=== PATIENT | female | born 1990 | race Asian ===

== ENCOUNTER 2024-02-19 14:53 | Outpatient (CLI) | payer BC ==
[~2024-02-19] VITALS: Ht 162.6 cm; Wt 70.5 kg
--- NOTE | 2024-02-19 15:10 | NUR ---
PT AMBULATORY TO UNIT WITH SPOUSE. REPORTS CTX Q5MIN. NO LOF, NO VAGINAL BLEEDING, POSITIVE MOVEMENT. REPORTS "NOT SUPER PAINFUL, BUT DEFINITELY HURT, I FEEL THE TIGHTENING. THEY WENT AWAY THIS MORNING BUT CAME BACK." DISCUSSED WATER INTAKE AND PT STATED SHE "DEFINITELY HAS NOT HAD ENOUGH" TODAY. SVE 1-2//-2. EFM CAT 1. VS STABLE.
[2024-02-19] MEDS ORDERED: LR 1,000 ML IV PRN (15:30)
[2024-02-19] MEDS ORDERED: PRENATAL TABLET PO (15:31)
[2024-02-19] MEDS ORDERED: PRILOSEC 20MG20 MG PO (15:32)
[2024-02-19] MEDS ORDERED: METAMUCIL0.52 G1 (15:32)
--- NOTE | 2024-02-19 16:14 | NUR ---
SVE UNCHANGED. DISCUSSED EARLY LABOR VS REAL LABOR. TOLD PT TO COME BACK IF SROM, VAGINAL BLEEDING, DECREASED FM, OR INCREASE IN CTX. PT UNDERSTANDS AND AGREES TO GO HOME.
[2024-02-19 16:15] VITALS: BP 123/77; PULSE 100
== END 2024-02-19 16:20 | disposition home or self-care (01) ==
LOC: LDRO 14:53
DX: Z34.93 Encounter for supervision of normal pregnancy, unspecified, third trimester (principal); Z3A.40 40 weeks gestation of pregnancy

== ENCOUNTER 2024-02-20 04:31 | Inpatient (IN) | payer BC ==
[~2024-02-20] VITALS: Ht 165.1 cm; Wt 70.5 kg
[2024-02-20] VITALS (31 sets, daily range): BP systolic 95–147; BP diastolic 53–88; PULSE 54–89; TEMP 97.2–98.1
[~2024-02-20 04:31] MED LIST: METAMUCIL0.52 G1; PRENATAL TABLET PO; PRILOSEC 20MG20 MG PO
--- NOTE | 2024-02-20 04:40 | NUR ---
PT ARRIVED TO UNIT WITH COMPLAINT OF INCREASING CONTRACTION PAIN AND BLOODY SHOW. DOES NOT THINK HER WATER HAS BROKEN. REPORTS GOOD FM.
[2024-02-20] MEDS ORDERED: LR & Oxytocin 500 ML IV SCH (05:15)
[2024-02-20] MEDS ORDERED: Penicillin G Potassium 5,000,000 UNITS in NS 100 ML IV ONE (05:15)
[2024-02-20] MEDS ORDERED: LR 1,000 ML IV SCH (05:15)
--- NOTE | 2024-02-20 05:45 | NUR ---
PT TO WHIRLPOOL TUB. WATER TEMP CHECKED AT 97.7 DEG F.
[2024-02-20 05:48] LABS: BASO % 0.2 % (0.0-2.0); EOS % 0.1 % (0.0-4.0); GRAN # 8.2 K/mm3 (1.4-6.5); HEMOGLOBIN 12.6 g/dl (12.5-16.0); LYMPH # 1.2 K/mm3 (1.2-3.4); LYMPH % 11.7 % (20.0-51.0); MEAN CELL VOLUME 93 fl (80.0-100.0); MEAN CORPUSCULAR HEMOGLOBIN 33 pg (27-31); MEAN CORPUSCULAR HGB CONC 35 g/dl (33.0-37.0); MEAN PLATELET VOLUME 10.9 fl (7.4-10.4); MONO # 0.6 K/mm3 (0.1-0.6); MONO % 6.2 % (1.7-9.3); PLATELET COUNT 140 K/mm3 (130-400); RED BLOOD COUNT 3.84 M/mm3 (4.10-5.30); REDCELL DISTRIBUTION WIDTH-CV 12.6 % (11.5-14.5)
[2024-02-20 05:57] LABS: HEMATOCRIT 35.7 % (37.0-47.0)
--- NOTE | 2024-02-20 06:49 | NUR ---
ASTRONOMY INSTRUCTOR CALLED FOR EPIDURAL PLACEMENT, IVFB STARTED
[2024-02-20] MEDS ORDERED: ROPivacaine PF 0.2% 200 ML IV ONE (07:09)
[2024-02-20] MEDS ORDERED: ePHEDrine 50 MG/10 ML VIAL IV PRN (07:30)
[2024-02-20] MEDS ORDERED: diphenhydrAMINE 50 MG/ML 1 ML VIAL IV PRN (07:30)
[2024-02-20] MEDS ORDERED: diphenhydrAMINE 25 MG CAP PO PRN (07:30)
[2024-02-20] MEDS ORDERED: Naloxone 0.4 MG/ML VIAL IV PRN ×2 (07:30→13:30)
[2024-02-20] MEDS ORDERED: Ondansetron 4 MG/2 ML VIAL IV PRN (07:30)
--- NOTE | 2024-02-20 07:50 | NUR ---
PT SITTING ON SIDE OF BED FOR EPIDURAL PLACEMENT. RN ATTEMPTING TO HANDHOLD US. PT TOLERATED PROCEDURE WELL.
[2024-02-20] MEDS ORDERED: Penicillin G Potassium 2,500,000 UNITS in NS 100 ML IV SCH (09:15)
--- NOTE | 2024-02-20 11:02 | NUR ---
ROLES MD BEDSIDE; DISCUSSES AROM WITH PT. PT VERBALIZES UNDERSTANDING AND HAS NO QUESTIONS.
--- NOTE | 2024-02-20 11:04 | NUR ---
RN BEDSIDE PUSHING WITH PT.
--- NOTE | 2024-02-20 11:27 | NUR ---
RN CALLS MD AND ORDERS GIVEN TO START PITOCIN PER PROTOCOL TO GET A BETTER CONTRACTION PATTERN FOR PUSHING. RN RBVO.
[2024-02-20] MEDS ORDERED: Loratadine 10 MG TAB PO PRN (13:30)
[2024-02-20] MEDS ORDERED: Phenylephrine/Mineral Oil/Petrolatum 57 GM TUBE RC PRN (13:30)
[2024-02-20] MEDS ORDERED: Measles/Mumps/Rubella Virus Vaccine Live w Diluent 0.5 ML VIAL SQ SCH (13:30)
[2024-02-20] MEDS ORDERED: oxyCODONE 5 MG TAB PO PRN (13:30)
[2024-02-20] MEDS ORDERED: Witch Hazel 50% Pads Bulk TUB TP PRN (13:30)
[2024-02-20] MEDS ORDERED: Ibuprofen 800 MG TAB PO SCH (13:30)
[2024-02-20] MEDS ORDERED: Acetaminophen 500 MG TAB PO SCH ×2 (13:30→21:50)
[2024-02-20] MEDS ORDERED: Mag/Al Hydrox/Simeth Susp 30 ML CUP PO PRN (13:30)
[2024-02-20] MEDS ORDERED: Magnes Hydrox (MOM) 80 MG/ML 30 ML CUP PO PRN (13:30)
--- NOTE | 2024-02-20 14:05 | NUR ---
RN X3 AND BEDSIDE FOR DELIVERY. SPONTANEOUS VAGINAL DELIVERY AT 1300 OF VIABLE MALE INFANT. PT TOLERATED DELIVERY WELL.
--- NOTE | 2024-02-20 15:41 | NUR ---
1515 RN STANDS BY ASSIST PT TO BATHROOM. PT UNABLE TO VOID, ALYSA CARE PERFORMED AND GOWN CHANGED. PT MOVED TO ROOM.
[2024-02-20] MEDS ORDERED: Sennosides/Docusate 8.6-50 MG TAB PO SCH (17:00)
[2024-02-20] MEDS ORDERED: traZODone 50 MG TAB PO PRN (21:00)
[2024-02-21 00:30] VITALS: BP 101/61; PULSE 66; TEMP 97.7
[2024-02-21 05:30] VITALS: BP 112/71; PULSE 72; TEMP 97.8
[2024-02-21 08:30] VITALS: BP 115/60; PULSE 69; TEMP 98
[2024-02-21] MEDS ORDERED: Prenatal Vitamins/Iron/FA TAB PO SCH (09:00)
[2024-02-21] MEDS ORDERED: IBU800 M1 PO (09:22)
== END 2024-02-21 15:10 | disposition home or self-care (01) | DRG 807 ==
LOC: LDRO 04:31 → LDR 05:02 → OB 15:47
PROVIDERS: Obstetrics & Gynecology; ADMIT Obstetrics & Gynecology
PROC: 10E0XZZ Delivery of Products of Conception, External Approach (ICD-10-PCS; principal; 2024-02-20)
PROC: 0KQM0ZZ Repair Perineum Muscle, Open Approach (ICD-10-PCS; 2024-02-20)
DX: O48.0 Post-term pregnancy (principal); Z37.0 Single live birth; Z3A.40 40 weeks gestation of pregnancy; O99.824 Streptococcus B carrier state complicating childbirth; O70.1 Second degree perineal laceration during delivery; Z23 Encounter for immunization
CPT/HCPCS: J2540; J2590; J2795; J7120